=== PATIENT | female | born 1950 | race Caucasian/White ===

== ENCOUNTER → 2020-09-30 | Outpatient (CLI) | payer MEDICARE | LOC: LAB 12:12 | PROVIDERS: Nurse Practitioner Family | DX: M25.561 Pain in right knee (principal); M25.562 Pain in left knee; D89.9 Disorder involving the immune mechanism, unspecified; R76.8 Other specified abnormal immunological findings in serum; M79.10 Myalgia, unspecified site; M17.0 Bilateral primary osteoarthritis of knee | CPT/HCPCS: 36415; 73562; 82550; 82728; 83520; 85652; 86140; 86200; 86431 ==